=== PATIENT | male | born 1980 ===

== ENCOUNTER 2024-10-03 12:39 | Emergency (ER) | payer OTHER, SELFPAY ==
--- NOTE | ~2024-10-03 | CT_ITS ---
CLINICAL HISTORY: head trauma CT head without contrast Comparison: None Findings: No acute hemorrhage. No extra-axial fluid collection. No hydrocephalus, mass-effect or herniation. Saldivar-white differentiation is maintained. White matter is within normal limits for age. No acute orbital pathology. No acute soft tissue abnormality. No fracture. The visualized paranasal sinuses are predominantly clear. The mastoid air cells are clear. Impression: No acute findings. This document has been electronically signed by: Angélica Nolasco MD on 10/03/2024 14:56:03
[2024-10-03 12:46] VITALS: BP 142/82; BP 159/103; PULSE 105; PULSE 115; RESP 18; TEMP 37.1; O2SAT 98; BMI 22.7
--- NOTE | 2024-10-03 13:21 | ED.GENADULT ---
HPI - General Adult General Chief complaint: Seizure Stated complaint: SEIZURE W/ FALL, COLLARED PER EMS Time Seen by Provider: 10/03/24 12:43 Source: EMS Mode of arrival: EMS Limitations: no limitations History of Present Illness ED Provider: HPI narrative: 43-year-old male with history of opiate use, he is on methadone, was going to his methadone clinic on a bus, he states prior to that for the past 2 days he has been nauseous throwing up, and it sounds like he was dry heaving and syncopized, he denies any history of seizures, he states that he pretty much remember everything what happened and he wanted to continue going to his methadone clinic but was brought to the ER. He denies headaches, fevers chills chest pain, states has had epigastric abdominal pain nausea vomiting diarrhea for the past 2 days. Related Data Allergies Allergy/AdvReac Type Severity Reaction Status Date / Time No Known Allergies Allergy Verified 10/03/24 12:50 Review of Systems Constitutional: Constitutional: Reports as per HPI [facility] Social History Social History Smoked in Last 30 Days: Yes Use of substances other than those prescribed or required for medical reasons: No Advance Directives: No Advance Directives Information Provided: No Do you have a plan to hurt others: No Plan Physical Exam ED Vital Signs: Vital Signs - 24 hr 10/03/24 12:46 10/03/24 14:27 Temperature 98.7 F 99.1 F Pulse Rate 105 H 88 Respiratory Rate 18 15 Blood Pressure 159/103 H 134/98 H Pulse Oximetry 98 99 Oxygen Delivery Method Room Air Room Air BMI result Body Mass Index 22.7 Const Other: Gen: ?Overall well-appearing patient, over the left forehead it maybe a slight hematoma Cleared his collar using nexus criteria HEENT: PERRLA, EOMI, MMM, Neck: Supple, no LAD CV: RRR, no obvious murmurs appreciated Resp: ?No wheezing rales rhonchi no stridor moving air well Abd: ?Bowel sounds are present, no tenderness no rebound no rigidity MSK: FROM, strength 5/5 all extremities Skin: Warm, dry, intact, there are some track moreno along his bilateral ACs and forearms Neuro: ?Alert and oriented x3, moving upper and lower extremities symmetrically, no obvious facial asymmetry noted Medications Administered Discontinued Medications Generic Name Dose Route Start Last Admin Trade Name Kamryn PRN Reason Stop Dose Admin Al Hydroxide/Mg Hydroxide 30 ml 10/03/24 13:21 10/03/24 13:46 Magnesium Hydrox/Alum Hydrox 30 Ml Oral.Susp PO 10/03/24 13:22 30 ml ONCE ONE Administration Famotidine 20 mg 10/03/24 13:21 10/03/24 13:46 Famotidine/Pf 20 Mg/2 Ml Vial IVPUSH 10/03/24 13:22 20 mg ONCE ONE Administration Sodium Chloride 1,000 mls @ 999 mls/hr 10/03/24 13:30 10/03/24 13:46 Ns IV 10/03/24 14:30 999 mls/hr .Q1H1M OTILIA Administration Ondansetron HCl 4 mg 10/03/24 13:21 10/03/24 13:47 Ondansetron Hcl 4 Mg/2 Ml Vial IVPUSH 10/03/24 13:22 4 mg ONCE ONE Administration Medical Decision Making Medical Decision Making [facility] Narrative: 13:28 patient is overall well-appearing, I will obtain CT but not for seizure at does not sound like he has had a seizure he sounds like he has had a syncopal episode he was not postictal at the time of my evaluation alert oriented, no focal findings. Other considerations as below, if I am able to confirm his methadone dose we will administer it, we will give fluids, antiemetics, his abdominal exam is benign I do not anticipate that he requires imaging of his abdomen pelvis. 250: White count somewhat elevated this is not related to an infection, more consistent with a smoker, and BUN is high consistent with dehydration Differential Diagnosis Differential Diagnoses: The differential diagnosis associated with the presentation includes Alcohol withdrawal seizure, new onset of seizure, syncope, dehydration, ACS, dysrhythmia Admission/Observation Consideration of admission/observation: Escalation of care including admission/observation considered Lab Data [facility] Lab Attestation statement: I reviewed the patient's lab results. 10/03/24 13:39 10/03/24 13:39 Labs: Lab Results 10/03/24 Range/Units 13:39 WBC 15.7 H (4.8-10.8) X10*3/uL RBC 4.55 L (4.60-5.80) X10*6/uL Hgb 14.5 (14.0-18.0) g/dl Hct 41.7 L (42.0-52.0) % MCV 91.6 (80.0-98.0) fL MCH 31.9 (27.0-33.0) pg MCHC 34.8 (31.0-36.0) g/dl RDW 12.9 (11.0-16.0) % Plt Count 233 (160-400) X10*3/uL MPV 9.3 L (9.4-12.4) fL Immature Gran % (Auto) 0.6 H (0.0-0.4) % Neut % (Auto) 80.4 H (45-73) % Lymph % (Auto) 8.8 L (20-40) % Hudspeth % (Auto) 9.9 (2-11) % Eos % (Auto) 0.0 (0-4) % Baso % (Auto) 0.3 (0-2) % Lymph # (Auto) 1.4 (1.2-4.9) X10*3/uL [place]udspeth # (Auto) 1.6 H (0.1-1.2) X10*3/uL Eos # (Auto) 0.0 (0.0-0.4) X10*3/uL Baso # (Auto) 0.0 (0.0-0.2) X10*3/uL Abs Immat Gran (auto) 0.09 H (0.00-0.03) X10*3/uL Absolute Neuts (auto) 12.7 H (2.0-8.3) x10*3/uL Absolute Nucleated RBC 0.000 (0.0-0.012) X10*3/uL Nucleated RBC % (auto) 0.0 (0.0-0.2) /100WBC Smear Tech's Comments VERIFIED Sodium 140 (135-145) mmol/L Potassium 4.0 (3.3-5.1) mmol/L Chloride 106 (96-108) mmol/L Carbon Dioxide 19 L (22-29) mmol/L Anion Gap 19 (12-20) BUN 40 H (9-16) mg/dL Creatinine 1.10 (0.5-1.4) mg/dL Estim Creat Clear Calc 68.9 Estimated GFR > 60 Random Glucose 105 (60-115) mg/dL Calcium 10.0 (8.4-10.2) mg/dL Radiology Impression Discussion of test interpretation with radiology: I have reviewed the radiologist's reading. Discharge Plan Discharge Clinical Impression: Syncope and collapse, Acute dehydration Patient Disposition: Home, Self-Care Additional Instructions: Stay well hydrated, your blood work that shows suspicion for dehydration, in your likely had syncopal episode with major collapse, please stop using injection drugs as you already on methadone, CT of the brain unremarkable, follow up with the PCP Print Language: Nauruan
--- NOTE | 2024-10-03 13:22 | ECG_ITS ---
Test Reason : SEIZURE Blood Pressure : */* mmHG Vent. Rate : 88 BPM Atrial Rate : 88 BPM P-R Int : 124 ms QRS Dur : 86 ms QT Int : 390 ms P-R-T Axes : 64 59 44 degrees QTcB Int : 471 ms Artifact in tracing Sinus rhythm with Premature atrial complexes with Aberrant conduction Otherwise normal ECG No previous ECGs available Referred By: Doug Somers Electronically Signed By: DAVON EDWARDS
[2024-10-03] MEDS: Magnesium Hydrox/Alum Hydrox 30 ML ORAL.SUSP PO (13:46)
[2024-10-03] MEDS: Famotidine/PF 20 MG/2 ML VIAL IVPUSH (13:46)
[2024-10-03] MEDS: 0.9 % Sodium Chloride 1,000 ML 999 ML IV (13:46)
[2024-10-03] MEDS: ondansetron HCL 4 MG/2 ML VIAL IVPUSH (13:47)
[2024-10-03 13:55] LABS: Basophils Percent Auto 0.3 % (0-2); Hematocrit 41.7 % (42.0-52.0); Hemoglobin 14.5 g/dl (14.0-18.0); Imm Gran Abs Auto 0.09 X10*3/uL (0.00-0.03); Imm Gran Pct Auto 0.6 % (0.0-0.4); Lymphocytes Absolute Auto 1.4 X10*3/uL (1.2-4.9); Lymphocytes Percent Auto 8.8 % (20-40); MANUAL DIFF FLAG SCAN; Mean Corpuscular HGB Conc 34.8 g/dl (31.0-36.0); Mean Corpuscular Hemoglobin 31.9 pg (27.0-33.0); Mean Corpuscular Volume 91.6 fL (80.0-98.0); Mean Platelet Volume 9.3 fL (9.4-12.4); Monocytes Absolute Auto 1.6 X10*3/uL (0.1-1.2); Monocytes Percent Auto 9.9 % (2-11); Neutrophils Absolute Auto 12.7 x10*3/uL (2.0-8.3); Neutrophils Percent Auto 80.4 % (45-73); Platelet Count 233 X10*3/uL (160-400); Red Blood Count 4.55 X10*6/uL (4.60-5.80); Red Cell Distribution Width 12.9 % (11.0-16.0); SCAN SMEAR FLAG 1; White Blood Count 15.7 X10*3/uL (4.8-10.8)
[2024-10-03 14:00] LABS: Anion Gap 19 (12-20); Blood Urea Nitrogen 40 mg/dL (9-16); Carbon Dioxide 19 mmol/L (22-29); Chloride 106 mmol/L (96-108); Creatinine Clr Calc Pharmacy 68.9; Estimated Glomerular Filt Rate > 60; Glucose Random 105 mg/dL (60-115); Sodium 140 mmol/L (135-145)
[2024-10-03 14:10] LABS: SLIDE REVIEW VERIFIED
[2024-10-03 14:27] VITALS: BP 134/98; PULSE 88; RESP 15; TEMP 37.3; O2SAT 99
--- NOTE | 2024-10-03 15:33 | MHC.RECOVRN ---
METHADONE VERIFICATION On October 01, 9:51am pt received 104 mg of methadone from the [facility] per surgical services coordinator Giselle [phone].
[2024-10-03 15:48] VITALS: BP 134/98; PULSE 88; RESP 15; TEMP 37.3; O2SAT 99
--- NOTE | 2024-10-03 16:19 | HE.PHANOTE ---
Re Methadone Received confirmation from nursing. [facility]. Last dose on 10/01/2024
[2024-10-03] MEDS: methADONE HCl 20 MG/2 ML ORAL.CONC 104 MG PO (16:47)
--- NOTE | 2024-10-04 09:14 | HE.PHANOTE ---
METHADONE Pt last received 104mg on 10/01/24 @0951 from [facility] ([phone]) per MIKAEL Cedeno.
== END 2024-10-03 16:54 | disposition home or self-care (01) ==
PROVIDERS: Emergency Provider Emergency Medicine; PCP Family Medicine
DX: R55 Syncope and collapse (principal); E86.0 Dehydration; R11.0 Nausea
CPT/HCPCS: 36415; 70450; 80048; 85025; 93005; 96361; 96374; 96375; 99284; 99285; J1308; J2405

== ENCOUNTER → 2024-10-03 13:22 | Outpatient (BNV) | payer OTHER, SELFPAY | PROVIDERS: Emergency Provider Emergency Medicine; PCP Family Medicine; Visit Provider Radiology Diagnostic Radiology | DX: G44.309 Post-traumatic headache, unspecified, not intractable (principal) | CPT/HCPCS: 70450 ==

== ENCOUNTER → 2024-10-03 13:22 | Outpatient (BNV) | payer OTHER, SELFPAY | PROVIDERS: Emergency Provider Emergency Medicine; PCP Family Medicine; Visit Provider Internal Medicine | DX: I49.1 Atrial premature depolarization (principal); I45.9 Conduction disorder, unspecified | CPT/HCPCS: 93010 ==